=== PATIENT | female | born 1990 | race Caucasian/White ===

== ENCOUNTER 2023-01-14 18:52 | Emergency (ER) | payer OTHER ==
[~2023-01-14] VITALS: Ht 162.6 cm; Wt 45.4 kg
--- NOTE | 2023-01-14 19:29 | NUR ---
Pateint placed a/o x 4. NAD noted. Ambulatory with a steady gait.
--- NOTE | 2023-01-14 19:30 | NUR ---
Patient placed in gown per Dr. Rothman's request and given a bed sheet.
--- NOTE | 2023-01-14 19:41 | NUR ---
Dr. Rothman at bedside. MSE in progress.
--- NOTE | 2023-01-14 19:57 | NUR ---
Chaperoned Dr. Rothman during examination.
[2023-01-14] MEDS ORDERED: METOCLOPRAMIDE HCL 10 MG/2 ML VIAL IM ONE (20:00)
[2023-01-14] MEDS ORDERED: KETOROLAC TROMETHAMINE 60 MG INJ IM ONE ×2 (20:00→21:22)
[2023-01-14] MEDS ORDERED: diphenhydrAMINE 50 MG/1 ML VIAL IM ONE (20:00)
[2023-01-14 20:18] LABS: HEMATOCRIT 40.2 % (31.2-41.9); MEAN CORPUSCULAR HEMOGLOBIN 29.5 uug (24.7-32.8); MEAN CORPUSCULAR VOLUME 89.7 fL (75.5-95.3); PLATELET COUNT (AUTO) 176 K/uL (179-408)
--- NOTE | 2023-01-14 20:18 | NUR ---
Urine sent to the lab.
--- NOTE | 2023-01-14 20:23 | NUR ---
Patient taken down for CT.
--- NOTE | 2023-01-14 20:27 | NUR ---
Patient has returned from CT.
[2023-01-14 20:36] LABS: CREATININE 0.8 mg/dL (0.6-1.3); POTASSIUM 3.7 mmol/L (3.5-5.1)
[2023-01-14 20:42] LABS: BILIRUBIN,DIRECT 0.2 mg/dL (0.0-0.2); BILIRUBIN,TOTAL 0.7 mg/dL (0.2-1.0); TOTAL PROTEIN, SERUM 8.3 g/dL (6.4-8.2)
[2023-01-14 20:58] LABS: *URINE HCG, QUAL NEGATIVE (NEGATIVE)
[2023-01-14] MEDS ORDERED: diphenhydrAMINE 50 MG/1 ML VIAL ONE (21:24)
[2023-01-14] MEDS ORDERED: METOCLOPRAMIDE HCL 10 MG/2 ML VIAL ONE (21:24)
[2023-01-14] MEDS ORDERED: CYCL10TA9 PO (22:32)
[2023-01-14] MEDS ORDERED: IBUP-1958 PO (22:32)
--- NOTE | 2023-01-14 22:39 | NUR ---
Patient a/o x 4. NAD noted. Ambulatory with a steady gait. Patient discharged to home in stable condition. Written and verbal after care instructions given. Patient verbalizes understanding of instructions. Stressed follow up or return to ER for worsening s/s. All belongings with patient.
[2023-01-14 22:40] VITALS: BP 139/81
== END 2023-01-14 22:42 | disposition home or self-care (01) ==
LOC: ER 18:55
DX: S43.401A Unspecified sprain of right shoulder joint, initial encounter (principal); R51.9 Headache, unspecified; R07.89 Other chest pain; V43.52XA Car driver injured in collision with other type car in traffic accident, initial encounter; Y93.89 Activity, other specified; Y92.410 Unspecified street and highway as the place of occurrence of the external cause; Y99.8 Other external cause status
CPT/HCPCS: 99285; 70450; 71045; 80076; 80048; 84703; 85025; 36415; 93005; 73030; 73060; 96372 ×3; J1200; J1885; J2765; A4663